=== PATIENT | female | born 1940 | race Caucasian/White ===

== ENCOUNTER 2020-10-21 14:01 | Inpatient (IN) | payer OTHER ==
[~2020-10-21] VITALS: Ht 152.4 cm; Wt 76.8 kg
[~2020-10-21 14:01] MED LIST: ASPIR-TRIN325 MG PO; FLONASE16 GM; HYDROCHLOROTH12.5 M1 PO; LACTULOSE10 GM/151 PO; LOSARTAN POTAS100 MG PO; PROVENTIL HFA6.7 GM INH; ROSADAN 0.75%1 EACH TOP; VITAMIN D1000 UNI1 PO
[2020-10-21 14:25] LABS: BASOPHILS % 0.6 % (0.0-1.0); EOSINOPHILS # (AUTO) 0.1 (0.0-0.4); EOSINOPHILS % 2.2 % (0.0-6.0); HEMATOCRIT 44.2 % (34.2-44.1); HEMOGLOBIN 14.6 g/dL (12.0-16.0); LYMPHOCYTES # (AUTO) 2.6 (1.0-3.2); LYMPHOCYTES % 40.3 % (18.0-39.1); MEAN CORPUSCULAR HEMOGLOBIN 31.7 pg (28-32); MEAN CORPUSCULAR VOLUME 95.9 fL (81-99); MONOCYTES # (AUTO) 0.6 (0.2-0.8); MONOCYTES % 8.8 % (4.4-11.3); NEUTROPHILS # (AUTO) 3.1 (2.1-6.9); NEUTROPHILS % 47.9 % (38.7-80.0); PLATELET COUNT 311 x10e3/uL (140-360); RED BLOOD COUNT 4.61 x10e6/uL (3.6-5.1)
[2020-10-21] MEDS ORDERED: LEVOCETIRIZINE D5 MG PO (14:28)
[2020-10-21] MEDS ORDERED: ASPIRIN81 MG PO (14:28)
[2020-10-21] MEDS ORDERED: PEPTO-BISMOL262 M1 PO (14:28)
[2020-10-21] MEDS ORDERED: OMEPRAZOLE40 MG PO (14:28)
[2020-10-21] MEDS ORDERED: ASCORBIC ACID500 MG PO (14:28)
[2020-10-21] MEDS ORDERED: BENAZEPRIL HCL10 MG PO (14:28)
[2020-10-21] MEDS ORDERED: AMLODIPINE BESYL5 MG PO (14:28)
[2020-10-21] MEDS ORDERED: FISH OIL 1,0001 EAC2 PO (14:28)
[2020-10-21] MEDS ORDERED: BACLOFEN10 MG PO (14:28)
[2020-10-21] MEDS ORDERED: QUESTRAN PACKET4 GM PO (14:28)
[2020-10-21] MEDS ORDERED: CENTRUM SILVER1 EAC5 PEG (14:28)
[2020-10-21] MEDS ORDERED: LASIX20 MG PO (14:28)
[2020-10-21 14:41] LABS: ALANINE AMINOTRANSFERASE 44 IU/L (0-55); ALBUMIN 4.2 g/dL (3.5-5.0); ALBUMIN/GLOBULIN RATIO 1.1 (0.8-2.0); ALKALINE PHOSPHATASE 81 IU/L (40-150); ANION GAP 15.7 mmol/L (8-16); BLOOD UREA NITROGEN 13 mg/dL (7-26); BUN/CREATININE RATIO 18 (6-25); CALCIUM 9.2 mg/dL (8.4-10.2); CARBON DIOXIDE 27 mmol/L (22-29); CHLORIDE 104 mmol/L (98-107); CREATININE, SERUM 0.74 mg/dL (0.57-1.11); EST GLOMERULAR FILTRATION RATE > 60 ML/MIN (60-); GLUCOSE 102 mg/dL (74-118); POTASSIUM 3.7 mmol/L (3.5-5.1); SODIUM 143 mmol/L (136-145)
[2020-10-21] MEDS ORDERED: ASPIRIN 81 MG CHEW TAB PO ONE (15:45)
[2020-10-21 17:18] VITALS: BP 179/99
[2020-10-21 17:21] VITALS: BP 179/99
[2020-10-21 17:27] VITALS: BP 179/99
[2020-10-21] MEDS ORDERED: METOPROLOL TARTRATE INJ 1 MG/ML VIAL IV PRN (17:45)
[2020-10-21] MEDS: BENAZEPRIL HCL 10 MG TAB PO SCH (17:46)
[2020-10-21] MEDS: AMLODIPINE BESYLATE 5 MG TAB PO SCH (17:47)
[2020-10-21 17:53] LABS: CHOL/HDL RATIO 5.1 (3.0-3.6)
[2020-10-21 19:56] VITALS: BP 138/79
[2020-10-21 20:15] VITALS: BP 138/79
[2020-10-21] MEDS ORDERED: BACLOFEN 10 MG TAB PO PRN (21:00)
[2020-10-22 00:25] VITALS: BP 150/86
[2020-10-22 04:51] VITALS: BP_SYST 132; BP_SYST 150; BP_DIAS 77; BP_DIAS 86
[2020-10-22] MEDS ORDERED: PANTOPRAZOLE SOD 40 MG TABEC PO SCH (07:30)
[2020-10-22 07:43] VITALS: BP 145/75
[2020-10-22 08:29] VITALS: BP 145/75
[2020-10-22] MEDS ORDERED: ASCORBIC ACID 500 MG TAB PO SCH (09:00)
[2020-10-22] MEDS ORDERED: CHOLECALCIFEROL 1,000 UNIT TAB PO SCH (09:00)
[2020-10-22] MEDS ORDERED: FUROSEMIDE 20 MG TAB PO SCH (09:00)
[2020-10-22] MEDS ORDERED: BISACODYL 10 MG SUPP PR ONE (09:00)
[2020-10-22] MEDS ORDERED: ASPIRIN 81 MG CHEW TAB PO SCH (09:00)
[2020-10-22] MEDS ORDERED: CLOPIDOGREL BISULFATE 75 MG TAB PO SCH (09:00)
[2020-10-22] MEDS: AMLODIPINE BESYLATE 5 MG TAB PO SCH ×2 (09:18→17:00)
[2020-10-22] MEDS: BENAZEPRIL HCL 10 MG TAB PO SCH ×2 (09:18→17:00)
[2020-10-22 11:58] VITALS: BP 151/81
[2020-10-22] MEDS ORDERED: PLAVIX75 MG PO (14:37)
[2020-10-22] MEDS ORDERED: Atorvastatin PO (14:37)
[2020-10-22 15:30] VITALS: BP 128/85
[2020-10-22] MEDS ORDERED: LIPITOR20 MG PO (16:41)
[2020-10-22] MEDS ORDERED: ENOXAPARIN SOD INJ 40 MG/0.4 ML SYR SC SCH (17:00)
[2020-10-22] MEDS ORDERED: ATORVASTATIN 40 MG TAB PO SCH (21:00)
== END 2020-10-22 17:40 | disposition home or self-care (01) | DRG 65 ==
LOC: ER 14:03 → ERHOLD 16:09 → MED/SURG2 16:34 → OBSVTOIN 10-22 10:24 → INTOOBSV 10-22 10:24 → OBSVTOIN 10-22 10:25
PROVIDERS: ADMIT Internal Medicine; ATTEND Internal Medicine
DX: I63.9 Cerebral infarction, unspecified (principal); G81.91 Hemiplegia, unspecified affecting right dominant side; E78.5 Hyperlipidemia, unspecified; Z20.822 Contact with and (suspected) exposure to COVID-19; I10 Essential (primary) hypertension; Z90.710 Acquired absence of both cervix and uterus
CPT/HCPCS: 36415; 70450; 70544; 70547; 70551; 71045; 80053; 80061; 83036; 84484; 85025; 93005; 93306; 99284; G0378; U0002

== ENCOUNTER 2021-07-07 12:45 | Inpatient (IN) | payer OTHER ==
[~2021-07-07] VITALS: Ht 167.6 cm; Wt 77.1 kg
[~2021-07-07 12:45] MED LIST changes: +AMLODIPINE BESYL5 MG PO; +ASCORBIC ACID500 MG PO; +ASPIRIN81 MG PO; +Atorvastatin PO; +BACLOFEN10 MG PO; +BENAZEPRIL HCL10 MG PO; +CENTRUM SILVER1 EAC5 PEG; +FISH OIL 1,0001 EAC2 PO; +LASIX20 MG PO; +LEVOCETIRIZINE D5 MG PO; +LIPITOR20 MG PO; +OMEPRAZOLE40 MG PO; +PEPTO-BISMOL262 M1 PO; +PLAVIX75 MG PO; +QUESTRAN PACKET4 GM PO
[2021-07-07] MEDS ORDERED: ACETAMINOPHEN 325 MG TAB PO ONE (14:15)
[2021-07-07] MEDS: SODIUM CHLORIDE 0.9% 1000ML 1,000 ML IV SCH ×2 (15:15→22:54)
[2021-07-07] MEDS ORDERED: DEXAMETHASONE SOD PHOS INJ 4 MG/ML SDV IV ONE (15:15)
[2021-07-07] MEDS ORDERED: ATORVASTATIN CA40 MG PO (15:25)
[2021-07-07] MEDS ORDERED: DEXAMETHASONE SOD PHOS INJ 4 MG/ML SDV ONE (16:54)
[2021-07-07] MEDS ORDERED: SODIUM CHLORIDE 0.9% 1000ML 1,000 ML ONE (16:54)
[2021-07-07 22:30] VITALS: BP 140/69
[2021-07-08] VITALS (8 sets, daily range): BP systolic 123–144; BP diastolic 71–89
[2021-07-08] MEDS ORDERED: ACETAMINOPHEN 325 MG TAB PO PRN (07:15)
[2021-07-08] MEDS ORDERED: ONDANSETRON HCL INJ 2MG/ML 2ML 2 MG/ML VIAL IV PRN (07:15)
[2021-07-08] MEDS: AZITHROMYCIN 250 MG TAB PO SCH (07:47)
[2021-07-08] MEDS: CEFTRIAXONE 1 GM in SODIUM CHLORIDE 0.9% 50ML 50 ML IV SCH (07:47)
[2021-07-08] MEDS: ENOXAPARIN SOD INJ 40 MG/0.4 ML SYR SC SCH (07:48)
[2021-07-08] MEDS: CLOPIDOGREL BISULFATE 75 MG TAB PO SCH (07:48)
[2021-07-08] MEDS: BENAZEPRIL HCL 10 MG TAB PO SCH ×2 (07:48→15:58)
[2021-07-08] MEDS: ATORVASTATIN 40 MG TAB PO SCH (07:49)
[2021-07-08] MEDS: AMLODIPINE BESYLATE 5 MG TAB PO SCH ×2 (07:49→15:58)
[2021-07-08] MEDS: DEXAMETHASONE 4 MG TAB PO SCH (07:49)
[2021-07-08 09:00] LABS: HEMOGLOBIN 13.6 g/dL (12.0-16.0); LYMPHOCYTES # (AUTO) 1.6 (1.0-3.2); LYMPHOCYTES % 47.8 % (18.0-39.1); MEAN CORPUSCULAR HEMOGLOBIN 31.4 pg (28-32); MEAN CORPUSCULAR VOLUME 92.4 fL (81-99); MONOCYTES # (AUTO) 0.4 (0.2-0.8); MONOCYTES % 11.1 % (4.4-11.3); NEUTROPHILS # (AUTO) 1.4 (2.1-6.9); NEUTROPHILS % 40.8 % (38.7-80.0); PLATELET COUNT 204 x10e3/uL (140-360); RED BLOOD COUNT 4.33 x10e6/uL (3.6-5.1)
[2021-07-08 09:21] LABS: ANION GAP 16.2 mmol/L (8-16); CREATININE, SERUM 0.72 mg/dL (0.57-1.11); POTASSIUM 3.2 mmol/L (3.5-5.1)
[2021-07-08] MEDS ORDERED: POTASSIUM CHLORIDE 20 MEQ TAB CR PO ONE (12:00)
[2021-07-08] MEDS ORDERED: REMDESIVIR 200MG 200 MG in SODIUM CHLORIDE 0.9% 100 ML IV ONE (17:00)
[2021-07-08] MEDS ORDERED: DOCUSATE SODIUM 100 MG CAP PO SCH (21:00)
[2021-07-09 04:23] VITALS: BP 149/83
[2021-07-09 08:21] VITALS: BP 151/80
[2021-07-09] MEDS: ATORVASTATIN 40 MG TAB PO SCH (09:00)
[2021-07-09] MEDS: CLOPIDOGREL BISULFATE 75 MG TAB PO SCH (09:23)
[2021-07-09] MEDS: BENAZEPRIL HCL 10 MG TAB PO SCH ×2 (09:23→17:23)
[2021-07-09] MEDS: DEXAMETHASONE 4 MG TAB PO SCH (09:23)
[2021-07-09] MEDS: AZITHROMYCIN 250 MG TAB PO SCH (09:23)
[2021-07-09] MEDS: ENOXAPARIN SOD INJ 40 MG/0.4 ML SYR SC SCH (09:23)
[2021-07-09] MEDS: AMLODIPINE BESYLATE 5 MG TAB PO SCH ×2 (09:23→17:23)
[2021-07-09] MEDS: CEFTRIAXONE 1 GM in SODIUM CHLORIDE 0.9% 50ML 50 ML IV SCH (09:23)
[2021-07-09] MEDS ORDERED: SODIUM CHLORIDE 0.9% 250ML 250 ML ONE (09:25)
[2021-07-09 10:07] VITALS: BP 151/80
[2021-07-09 12:36] VITALS: BP 137/77
[2021-07-09] MEDS ORDERED: ONDANSETRON HCL 4 MG ORAL DISINTEGRATING TAB PO PRN (13:15)
[2021-07-09] MEDS ORDERED: BISACODYL 10 MG SUPP PR PRN (13:30)
[2021-07-09] MEDS ORDERED: REMDESIVIR 100MG 100 MG in SODIUM CHLORIDE 0.9% 100 ML IV SCH (14:00)
[2021-07-09] MEDS ORDERED: DECADRON4 M1 PO (16:34)
[2021-07-09] MEDS ORDERED: AZITHROMYCIN250 MG PO (16:34)
[2021-07-09 16:42] VITALS: BP 134/79
== END 2021-07-09 17:55 | disposition home or self-care (01) | DRG 177 ==
LOC: FSED 13:13 → ERHOLD 16:42 → IMCU 21:49
PROVIDERS: ADMIT Internal Medicine; ATTEND Internal Medicine
PROC: 8E0ZXY6 Isolation (ICD-10-PCS; principal; 2021-07-07)
DX: U07.1 COVID-19 (principal); J12.82 Pneumonia due to coronavirus disease 2019; J15.9 Unspecified bacterial pneumonia; I69.359 Hemiplegia and hemiparesis following cerebral infarction affecting unspecified side; R09.02 Hypoxemia; I10 Essential (primary) hypertension; Z53.29 Procedure and treatment not carried out because of patient's decision for other reasons; Z85.41 Personal history of malignant neoplasm of cervix uteri; Z90.710 Acquired absence of both cervix and uterus; E87.6 Hypokalemia
CPT/HCPCS: 36415; 71046; 80048; 80053; 81003; 82553; 85025; 87040; 87086; 93005; 94799; 99284; J0696; J1100; J1650; J7030; J7050; U0002